=== PATIENT | male | born 1945 | race Caucasian/White ===

== ENCOUNTER 2023-08-17 09:28 | Emergency (ER) | payer BC, MEDICARE ==
[2023-08-17] MEDS ORDERED: HYDROcodone/Acetaminophen 5/325 mg Tablet ONE (12:28)
== END 2023-08-17 12:00 | disposition home or self-care (01) ==
LOC: CSHERS 09:28
DX: S80.12XA Contusion of left lower leg, initial encounter (principal); I10 Essential (primary) hypertension; I48.91 Unspecified atrial fibrillation; E11.9 Type 2 diabetes mellitus without complications; X58.XXXA Exposure to other specified factors, initial encounter; Z79.01 Long term (current) use of anticoagulants; Z86.718 Personal history of other venous thrombosis and embolism
CPT/HCPCS: 93005; 93010